=== PATIENT | female | born 1965 | race Caucasian/White ===

== ENCOUNTER 2024-02-10 14:21 | Emergency (ER) | payer MEDICARE, MEDICAID, SELFPAY ==
--- NOTE | ~2024-02-10 | US_ITS ---
US breast RT limited 02/10/2024 15:36 Indication: Palpable abnormality right chest inferior to the breasts Procedure: High-resolution Limited ultrasound of the right chest Comparison: Ultrasound dated 06/26/2017 Findings: There is an abnormal mass at 9:00, 5 cm from the nipple measuring 1.4 x 1.1 x 0.9 cm with i nternal vascularity and no significant posterior features. There is superficial edema noted in the ri ght chest inferior to the breasts in the area of concern without discrete mass. Superficial edema inf erior to the breast is nonspecific. Cannot exclude cellulitis. Impression: 1: Abnormal right breast mass at 9:00, 5 cm from the nipple measuring 1.4 cm. Correlation with diagno stic bilateral mammogram recommended. BI-RADS CATEGORY 0 - INCOMPLETE STUDY, NEED ADDITIONAL IMAGING EVALUATION. Reviewed, dictated and finalized at location B. Impression: 1: Abnormal right breast mass at 9:00, 5 cm from the nipple measuring 1.4 cm. C orrelation with diagnostic bilateral mammogram recommended. BI-RADS CATEGORY 0 - INCOMPLETE STUDY, NEED ADDITIONAL IMAGING EVALUATION.
[2024-02-10 14:26] VITALS: BP 101/66; PULSE 105; RESP 18; TEMP 37; O2SAT 99
[2024-02-10 15:18] LABS: Basophils Percent Auto 0.3 % (0.2-1.2); Eosinophils Absolute Auto 0.1 K/mm3 (0-0.3); Eosinophils Percent Auto 1.1 % (0-4.4); Hematocrit 39.3 % (37.0-47.0); Immature Granulocyte Absolute 0.02 K/mm3 (0.00-0.031); Immature Granulocyte Percent A 0.2 % (0-0.5); Lymphocytes Absolute Auto 1.69 K/mm3 (0.9-3.2); Lymphocytes Percent Auto 14.7 % (18.3-44.2); Mean Corpuscular HGB Conc 33.1 g/dl (32-36); Mean Corpuscular Hemoglobin 29.3 pg (26-34); Mean Corpuscular Volume 88.5 fl (80-100); Mean Platelet Volume 12.1 fl (7.4-10.4); Monocytes Absolute Auto 1.1 K/mm3 (0.1-0.6); Monocytes Percent Auto 9.7 % (2.6-8.5); Neutrophils Absolute Auto 8.5 K/mm3 (1.3-6.7); Platelet Count Result 241 k/mm3 (150-375); Red Blood Count 4.44 M/mm3 (4.2-5.4); Red Cell Distribution Width 14.1 % (11.5-14.5); White Blood Count 11.5 K/mm3 (4.5-10.0)
[2024-02-10 15:26] LABS: Lactic Acid Reflex 2.5 mmol/L (0.7-2.0)
--- NOTE | 2024-02-10 15:26 | ED.WOUNDLAC ---
HPI - Wound/Laceration General Chief Complaint: Wound/Laceration Stated Complaint: breast infection Time Seen by Provider: 02/10/24 14:31 Source: patient Mode of arrival: ambulatory Limitations: no limitations History of Present Illness HPI narrative: Patient is a 58-year-old female who presents the ED with report of the right breast infection. Patient reports she 1st noticed an area of redness, irritation, foul odor underneath her right breast 2 days ago. She reports history of left-sided breast cancer 6 years ago. She reports she was supposed to have a routine mammogram today but noticed the skin changes and prompted here. She does have history of previous fungal infections. She states she is prediabetic. Reports pain to area of rash on R breast. Denies nipple drainage/inversion. Denies fevers. Related Data Allergies Allergy/AdvReac Type Severity Reaction Status Date / Time codeine Allergy Unknown Verified 02/10/24 14:31 niacin Allergy Rash Verified 02/10/24 14:31 Review of Systems Review of Systems: CONSTITUTIONAL: Denies fever, chills, or sweats. SKIN: See HPI MUSCULOSKELETAL: See HPI All systems reviewed & are unremarkable except as noted in HPI and below Exam Narrative: GENERAL: Well appearing, obese with BMI of 33.8, non-toxic, in no acute distress. HEAD: Normocephalic, atraumatic. RESPIRATORY: Airway patent, respirations nonlabored. Clear to auscultation bilaterally, no rales, rhonchi, wheezing. CARDIOVASCULAR: Regular rate and rhythm MUSCULOSKELETAL: Moves all extremities. No gross deformities. SKIN: Warm, dry. Skin under R breast is diffusely erythematous, moist, yellow/white discharge with some excoriation present. Erythema does extend to inferior breast approximately midway. Some peau de orange changes. Mild tenderness to palpation throughout inferior breast. No obvious masses. No nipple drainage or inversion. L breast with small area of erythema under breast, minimal drainage. NEURO: A&O X3. Speech clear. Cranial nerves II-XII grossly intact. Steady gait. No ataxic movements. PSYCHIATRIC: Appropriate mood and affect. Normal interaction. Course Vital Signs Vital signs: Vital Signs Temperature 98.6 F 02/10/24 14:26 Pulse Rate 105 H 02/10/24 14:26 Respiratory Rate 18 02/10/24 14:26 Blood Pressure 101/66 02/10/24 14:26 Pulse Oximetry 99 02/10/24 14:26 Oxygen Delivery Room Air 02/10/24 14:26 Temperature 98.6 F 02/10/24 14:26 Pulse Rate 85 02/10/24 16:52 Respiratory Rate 18 02/10/24 16:52 Blood Pressure 106/68 02/10/24 16:52 Pulse Oximetry 100 02/10/24 16:52 Oxygen Delivery Room Air 02/10/24 14:26 MDM - Wound/Laceration MDM Narrative Medical decision making narrative: Exam consistent with cleo intertrigo with likely superimposed cellulitis. Laboratory studies show minimal leukocytosis of 11.5. Neutrophil predominance. No bandemia. CMP unremarkable. Blood glucose 108. CRP is mildly elevated to 2.9. ESR is within normal limits. Lactic acid was elevated to 2.5. Fluids initiated. Breast ultrasound obtained and showing superficial edema inferior breast, concerning for cellulitis. Does also show mass at 9:00 oclock region. Patient has previous known fatty tumors of her right breast which have been biopsied in the past and are noncancerous. Advised patient that she will need to follow up for mammogram for more definitive evaluation. Advised to contact primary care doctor for further evaluation. Will treat for Cleo and cellulitis with clotrimazole and Keflex. Patient given return precautions. Attempted to repeat lactic acid after fluids, however patient refused. Patient clinically looks very well. She is otherwise not meeting criteria for sepsis. Low concern for sepsis. D/C in stable condition. Medical Records Attestation: I reviewed the patient's medical records. Lab Data Attestation: I reviewed the patient's lab results. 02/10/24 15:11
[2024-02-10 15:30] LABS: Alanine Aminotransferase 21 U/L (6-35); Albumin Level 3.7 g/dL (3.5-5.1); Alkaline Phosphatase 78 U/L (38-126); Anion Gap 9 mmol/L (4-12); Aspartate Amino Transferase 20 U/L (14-36); Bilirubin,Total 0.4 mg/dL (0.2-1.3); Blood Urea Nitrogen 19 mg/dL (7-17); CRP 2.9 mg/dL (<1.0); Carbon Dioxide 27 mmol/L (22-30); Chloride 104 mmol/L (98-107); Estimated CRCL calculation 78 ml/min; Estimated Glomerular Filt Rate > 60; Glucose 108 mg/dL (65-110); Sodium 140 mmol/L (137-145)
[2024-02-10] MEDS: SODIUM CHLORIDE 0.9% IV 1,000 ML 999 ML IV CONT (15:39)
[2024-02-10 15:42] LABS: Erythrocyte Sedimentation Rate 20 mm/hr (0-20)
--- NOTE | 2024-02-10 16:51 | PC.NURSE ---
Patient refused repeat lactic acid draw. will let provider know
[2024-02-10 16:52] VITALS: BP 106/68; PULSE 85; RESP 18; O2SAT 100
[2024-02-10 18:15] LABS: Reflex Lactic Acid Yes or No Add Lactic
== END 2024-02-10 17:21 | disposition home or self-care (01) ==
PROVIDERS: Emergency Provider Physician Assistant
DX: N61.0 Mastitis without abscess (principal); B37.2 Candidiasis of skin and nail; N63.10 Unspecified lump in the right breast, unspecified quadrant
CPT/HCPCS: 36415; 76642; 80053; 83605; 85025; 85652; 86140; 96360; 99284; J7030